=== PATIENT | male | born 1970 | race Caucasian/White ===

== ENCOUNTER 2021-07-08 19:03 | Emergency (ER) | payer OTHER, SELFPAY ==
[2021-07-08] VITALS (9 sets, daily range): BP systolic 113–175; BP diastolic 78–114; PULSE 63–94; RESP 18–23; TEMP 36.7; O2SAT 96–98; BMI 43.0
[2021-07-08 20:32] LABS: Basophils # 0.1 10^3/uL (0.0-0.1); Basophils % 0.6 %; Eosinophils # 0.1 10^3/uL (0.0-0.8); Hematocrit 46.2 % (42.0-52.0); Hemoglobin 15.2 g/dL (11.7-16.6); Lymphocytes # 1.3 10^3/uL (0.8-4.8); Mean Corpuscular HGB Conc 32.9 g/dL (30.0-36.0); Mean Corpuscular Hemoglobin 28.4 pg (28.0-34.0); Mean Corpuscular Volume 86.2 fl (80-94); Mean Platelet Volume 9.1 fL (7.4-10.4); Monocytes # 0.8 10^3/uL (0.2-0.9); Monocytes % 9.4 %; Neutrophils # 5.78 10^3/uL (1.8-7.7); Neutrophils % 72.5 %; Nucleated Red Blood Cells % 0 %; Platelet Count 251 10^3/cmm (130-400); Red Blood Count 5.36 10^6/uL (4.1-5.3); Red Cell Distribution Width 12.8 % (12.1-15.1)
[2021-07-08 20:38] LABS: Influenza A by IFA Negative (Negative); Influenza B by IFA Negative (Negative)
--- NOTE | 2021-07-08 20:40 | XRR_ITS ---
PROCEDURE INFORMATION: Exam: XR Chest Exam date and time: 07/08/2021 8:55 PM Age: 50 years old Clinical indication: Chest wall pain; Additional info: Chest pain TECHNIQUE: Imaging protocol: XR of the chest. Views: 1 view. COMPARISON: No relevant prior studies available. FINDINGS: Lungs: Unremarkable. No consolidation. Pleural spaces: Unremarkable. No pleural effusion. No pneumothorax. Heart/Mediastinum: Unremarkable. No cardiomegaly. Bones/joints: Unremarkable. XR/XR chest 1V portable [id number] IMPRESSION: No acute findings.
--- NOTE | 2021-07-08 20:40 | ECG_ITS ---
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 Measurements Intervals [place] Rate: 64 P: 32 [place]: 158 QRS: 17 QRSD: 90 T: 49 QT: 371 QTc: 385 Interpretive Statements SINUS RHYTHM WITH SINUS ARRHYTHMIA Compared to ECG 07/08/2021 19:40:25 No significant changes Electronically Signed On 07-08-2021 22:23:48 CDT by Kenrick Patel M.D. [email or web address], [id number]
[2021-07-08] MEDS: sodium chloride 0.9% 1,000 ML 999 ML IV (20:49)
[2021-07-08] MEDS: aspirin 325 mg Tablet PO (20:50)
[2021-07-08 21:04] LABS: Alanine Aminotransferase 24 U/L (0-41); Albumin Level 4.1 g/dL (3.5-5.2); Alkaline Phosphatase 167 IU/L (40-130); Anion Gap 14.6 (5-19); Aspartate Amino Transferase 22 U/L (0-40); Blood Urea Nitrogen 11 mg/dL (6-20); Calcium 8.8 mg/dL (8.5-10.5); Carbon Dioxide 26 mmol/L (22-29); Chloride 102 mmol/L (98-107); Globulin 3.2 g/dL (1.3-4.6); Glomerular Filtration Rate 101.5 mL/min (90-130); Glucose 128 mg/dL (65-115); Lipase 22 U/L (13-60); Osmolality Calculated 289 mOsm/kg (285-295); Potassium 3.6 mmol/L (3.5-5.1); Sodium 139 mmol/L (136-145); Total Bilirubin 0.2 mg/dL (0.15-1.2); Total Protein 7.3 g/dL (6.6-8.7)
[2021-07-08 21:16] LABS: Troponin(5th) Baseline 6 ng/L (0-15)
--- NOTE | 2021-07-08 21:46 | W.ED.DIZZY ---
HPI - Dizziness General: Chief Complaint: Dizziness Stated Complaint: dizzy, weakness Time Seen by Provider: 07/08/21 20:08 Course Vital Signs: Vital signs: Vital Signs Temperature 98.0 F 07/08/21 19:29 Pulse Rate 80 07/08/21 20:20 Respiratory Rate 18 07/08/21 20:20 Blood Pressure 151/95 07/08/21 20:20 Pulse Oximetry 98 07/08/21 20:20 MDM - Dizziness Lab Data : 07/08/21 20:24 07/08/21 20:24 Radiology Impressions Chest X-Ray 07/08/21 20:40 IMPRESSION: No acute findings. Laboratory Results WBC 8.0 10^3/uL (4.0-10.0) 07/08/21 20:24 RBC 5.36 10^6/uL (4.1-5.3) H 07/08/21 20:24 Hgb 15.2 g/dL (11.7-16.6) 07/08/21 20:24 Hct 46.2 % (42.0-52.0) 07/08/21 20:24 MCV 86.2 fl (80-94) 07/08/21 20:24 MCH 28.4 pg (28.0-34.0) 07/08/21 20:24 MCHC 32.9 g/dL (30.0-36.0) 07/08/21 20:24 RDW 12.8 % (12.1-15.1) 07/08/21 20:24 Plt Count 251 10^3/cmm (130-400) 07/08/21 20:24 MPV 9.1 fL (7.4-10.4) 07/08/21 20:24 Neut % (Auto) 72.5 % 07/08/21 20:24 Lymph % (Auto) 16.0 % 07/08/21 20:24 [place] % (Auto) 9.4 % 07/08/21 20:24 Eos % (Auto) 1.0 % 07/08/21 20:24 Baso % (Auto) 0.6 % 07/08/21 20:24 Neut # (Auto) 5.78 10^3/uL (1.8-7.7) 07/08/21 20:24 Lymph # (Auto) 1.3 10^3/uL (0.8-4.8) 07/08/21 20:24 [place] # (Auto) 0.8 10^3/uL (0.2-0.9) 07/08/21 20:24 Eos # (Auto) 0.1 10^3/uL (0.0-0.8) 07/08/21 20:24 Baso # (Auto) 0.1 10^3/uL (0.0-0.1) 07/08/21 20:24 Nucleated RBC % (auto) 0 % 07/08/21 20:24 Nucleated RBCs # 0.0 /100WBC 07/08/21 20:24 Sodium 139 mmol/L (136-145) 07/08/21 20:24 Potassium 3.6 mmol/L (3.5-5.1) 07/08/21 20:24 Chloride 102 mmol/L (98-107) 07/08/21 20:24 Carbon Dioxide 26 mmol/L (22-29) 07/08/21 20:24 Anion Gap 14.6 (5-19) 07/08/21 20:24 BUN 11 mg/dL (6-20) 07/08/21 20:24 Creatinine 0.8 mg/dL (0.7-1.2) 07/08/21 20:24 GFR Calculation 101.5 mL/min (90-130) 07/08/21 20:24 Glucose 128 mg/dL (65-115) H 07/08/21 20:24 Calculated Osmolality 289 mOsm/kg (285-295) 07/08/21 20:24 Calcium 8.8 mg/dL (8.5-10.5) 07/08/21 20:24 Total Bilirubin 0.2 mg/dL (0.15-1.2) 07/08/21 20:24 AST 22 U/L (0-40) 07/08/21 20:24 ALT 24 U/L (0-41) 07/08/21 20:24 Alkaline Phosphatase 167 IU/L (40-130) H 07/08/21 20:24 Troponin T Baseline 6 ng/L (0-15) 07/08/21 20:24 Total Protein 7.3 g/dL (6.6-8.7) 07/08/21 20:24 Albumin 4.1 g/dL (3.5-5.2) 07/08/21 20:24 Globulin 3.2 g/dL (1.3-4.6) 07/08/21 20:24 Lipase 22 U/L (13-60) 07/08/21 20:24 Influenza Type A Ag Negative (Negative) 07/08/21 20:05 Influenza Type B Ag Negative (Negative) 07/08/21 20:05 Discharge Plan Discharge Condition: Stable Referrals: Suraj Gonzalez MD [Primary Care Provider] - Coding Level of Care Code ED Relations Coordinator for Danyell Michelle
--- NOTE | 2021-07-08 21:52 | ED_ITS ---
HPI - General Adult General: Chief complaint: Dizziness Stated complaint: dizzy, weakness Time Seen by Provider: 07/08/21 20:08 History of Present Illness: CC: Chest Pain and light-headedness HPI: This is a 50yo patient w/ no PMH presenting to the ED complaining of chest pressure and lightheadedness today. Patient to me that shortly after waking up this morning, she felt lightheaded. Around 3 PM this afternoon patient prescribed chest pressure with radiation to the left arm. Patient said that he also had another episode of lightheadedness associated with this chest pressure. Patient denies any exertional dyspnea or pleuritic chest pain. Pain is not tearing in nature and does not radiate to the back. Pain not associated with vomiting or PO intake. Denies any recent sympathomimetic drug use. Patient denies any cough. Denies palpitations, dysphagia, diaphoresis, radiation of pain to bilateral arms, jaw. Denies F/N/V/D. Patient denies any recent immobility, surgery, unilateral leg swelling, or prior PE. Patient denies any orthopnea. NO family hx of sudden cardiac or CAD. Onset: earlier today Duration: ongoing for the last 1 day Location: home Severity: mild/moderate Associated symptoms: Reports chest pain; Deny dyspnea, nausea, rash, palpitations or vomiting Review of Systems Const: Denies: fever(s) or chills Eyes: Denies: change in vision ENMT: Denies: mouth pain Card: Reports: chest pain; Denies: palpitations Resp: Denies: dyspnea or non-productive cough GI: Denies: abdominal pain, nausea, vomiting or diarrhea : Denies: dysuria Musc: Denies: extremity pain Skin/Breast: Denies: rash or new lesions Neuro: Reports: other (+light-headedness); Denies: weakness in extremities Psych: Reports: other (Normal mood) Willy/Lymph: Denies: easy bruising PFSH ED PFSH: Medical History No pertinent past medical history Social History Smoking and tobacco status: never smoked Alcohol intake: never Physical Exam Const: COMMON NORMALS: alert HENMT: COMMON NORMALS: atraumatic HEAD & SCALP: atraumatic MOUTH: moist mucous membranes not abnormal Eye: COMMON NORMALS: EOMs intact bilaterally and conjunctivae normal CONJUNCTIVA: Yes conjunctivae normal Neck/C-Spine: COMMON NORMALS: full ROM and supple Resp: COMMON NORMALS: normal respiratory effort and clear to auscultation bilaterally AUSCULTATION: clear to auscultation bilaterally Cardio: COMMON NORMALS: regular rate RATE: regular rate OTHER: 2+ radial pulses b/l GI: COMMON NORMALS: Soft to palpation and non-tender PALPATION: Yes Soft to palpation Extremity: COMMON NORMALS: full ROM Neuro: SENSORIUM/ORIENTATION: Yes alert MOTOR EXAM: No Abnormal motor strength present and Other motor observations present (no focal motor deficits) OTHER: no LE swelling Psych: COMMON NORMALS: speech normal SPEECH: Yes normal speech MOOD & AFFECT: Yes euthymic mood Course Vital Signs: Vital signs: Vital Signs Temperature 98.0 F 07/08/21 19:29 Pulse Rate 71 07/09/21 00:00 Respiratory Rate 16 07/09/21 00:00 Blood Pressure 120/93 07/09/21 00:00 Pulse Oximetry 96 07/09/21 00:00 MDM - General Adult Medical Decision Making [50]yo patient w/ no PMH presenting to the ED with evaluation of new onset of chest pain. HDS, pulse 2+ radially bilaterally, no signs of fluid overload, AAOx3, neuro exam intact. Patient had 3 out of 10 chest pressure. However reassessment after aspirin, patient reports chest pressure improved. Workup: ECG x 2, CXR, CBC, BMP, Troponin x 2 Interventions: ASA Findings: ECG: No overt evidence of STEMI, hyperacute T waves, localizable STD or T wave inversions. No evidence of Brugada?s sign, delta wave, epsilon wave, significantly prolonged QTc, or malignant arrhythmia. No Q waves. Other Labs unremarkable for emergent problems. Troponin x 2 wnl CXR: Without PTX, PNA, or widened mediastinum Last Stress Test: never Last Heart Catheterization: never HEART Score: 3 (age and story) PERC: Negative [11:00pm] On reassessment, the patient is HDS, no complaints of persistent chest pain in the ED after evaluation. ECG is non-ischemic. Workup today is unremarkable. Doubt ACS/PE or other emergent causes of chest pain. Doubt ACS/PE or other emergent causes of chest pain. No suspicion for aortic dissection given no widened mediastinum, 2+ upper extremity pulses, or tearing pain. No suspicion for PE given no pleuritic chest pain, recent immobilization or surgery hemoptysis, or other VTE risk factors. EKG is non-ischemic. XR normal. I performed shared decision-making with patient regarding admission versus discharge today for HEART score of 3 , and patient prefers to be discharged. I offered admission for chest pain workup. Upon hearing this, patient elects to go home with close follow up with Cardiology. I explained the risks of leaving the hospital today including lethal arrythemia, RI, and even . Patient verbalizes understanding of these discussed risk and elect for the alternative of following up outpatient since he has to bring his for outpatient hip surgery tomorrow and cannot do that if he were to stay in the hospital until tomorrow. Patient verbalizes understanding to return for any worsening symptoms including chest pain, dyspnea, fatigue, arm pain/jaw pain/back pain or any new or concerning issues. I have given patient follow up with our manager of case management to be seen by our outpatient Cardiology for further chest pain workup. Patient aware of a call from our manager of case management to schedule for appointment(s) and verbalizes understanding of the importance of following up. Disposition: Discharge. Patient counseled regarding diagnostic impression, treatment plan. Patient given ED strict return precautions to return for continuation, worsening, or development of new symptoms. Instructed to f/u w/ PCP regarding symptoms today. Patient verbalized understanding. Lab Data : 07/08/21 20:24 07/08/21 20:24 Radiology Impressions Chest X-Ray 07/08/21 20:40 IMPRESSION: No acute findings. Laboratory Results WBC 8.0 10^3/uL (4.0-10.0) 07/08/21 20:24 RBC 5.36 10^6/uL (4.1-5.3) H 07/08/21 20:24 Hgb 15.2 g/dL (11.7-16.6) 07/08/21 20:24 Hct 46.2 % (42.0-52.0) 07/08/21 20:24 MCV 86.2 fl (80-94) 07/08/21 20:24 MCH 28.4 pg (28.0-34.0) 07/08/21 20:24 MCHC 32.9 g/dL (30.0-36.0) 07/08/21 20: RDW 12.8 % (12.1-15.1) 07/08/21 20: Plt Count 251 10^3/cmm (130-400) 07/08/21 20:24 MPV 9.1 fL (7.4-10.4) 07/08/21 20:24 Neut % (Auto) 72.5 % 07/08/21 20: Lymph % (Auto) 16.0 % 07/08/21 20:24 [place] % (Auto) 9.4 % 07/08/21 20:24 Eos % (Auto) 1.0 % 07/08/21 20: Baso % (Auto) 0.6 % 07/08/21: Neut # (Auto) 5.78 10^3/uL (1.8-7.7) 07/08/21 20: Lymph # (Auto) 1.3 10^3/uL (0.8-4.8) 07/08/21: [place] # (Auto) 0.8 10^3/uL (0.2-0.9) 07/08/21 20:24 Eos # (Auto) 0.1 10^3/uL (0.0-0.8) 07/08/21 20: Baso # (Auto) 0.1 10^3/uL (0.0-0.1) 07/08/21 20:24 Nucleated RBC % (auto) 0 % 07/08/21: Nucleated RBCs # 0.0 /100WBC 07/08/21 20:24 Sodium 139 mmol/L (136-145) 07/08/21 20:24 Potassium 3.6 mmol/L (3.5-5.1) 07/08/21 20:24 Chloride 102 mmol/L (98-107) 07/08/21 20:24 Carbon Dioxide 26 mmol/L (22-29) 07/08/21 20:24 Anion Gap 14.6 (5-19) 07/08/21 20:24 BUN 11 mg/dL (6-20) 07/08/21 20:24 Creatinine 0.8 mg/dL (0.7-1.2) 07/08/21 20:24 GFR Calculation 101.5 mL/min (90-130) 07/08/21 20:24 Glucose 128 mg/dL (65-115) H 07/08/21 20:24 Calculated Osmolality 289 mOsm/kg (285-295) 07/08/21 20:24 Calcium 8.8 mg/dL (8.5-10.5) 07/08/21 20:24 Total Bilirubin 0.2 mg/dL (0.15-1.2) 07/08/21 20:24 AST 22 U/L (0-40) 07/08/21 20:24 ALT 24 U/L (0-41) 07/08/21 20:24 Alkaline Phosphatase 167 IU/L (40-130) H 07/08/21 20:24 Troponin T Baseline 6 ng/L (0-15) 07/08/21 20:24 Troponin T 120 Minute 6.00 ng/L (0-15) 07/08/21 22:35 Delta Troponin T 0 ABS# (0-10) 07/08/21 22:35 Total Protein 7.3 g/dL (6.6-8.7) 07/08/21 20:24 Albumin 4.1 g/dL (3.5-5.2) 07/08/21 20:24 Globulin 3.2 g/dL (1.3-4.6) 07/08/21 20:24 Lipase 22 U/L (13-60) 07/08/21 20:24 Influenza Type A Ag Negative (Negative) 07/08/21 20:05 Influenza Type B Ag Negative (Negative) 07/08/21 20:05 Discharge Plan Discharge Patient Disposition: Home Clinical Impression: Chest pain, Light headedness Condition: Stable Discharge Orders: Discharge ED (Routine); Ordered 07/09/21 Ordered By: Abdi Hines Referrals: Suraj Gonzalez MD [Primary Care Provider] - Discharge Diet: Advance as tolerated Discharge Activity: Increase activity as tolerated Patient Instructions: Chest Pain (ED) Activity Restrictions/Additional Instructions: Come back to the emergency room if your chest pain worsens, have any fever or chills, worsening shortness of breath, worsening exertional lightheadedness, or any new or concerning complaints. Our manager of case management will have you follow-up with Cardiology in the next few days. You would be expected to have a phone call with our manager of case management who will put you on the schedule. You can expect a call from us in the next 2-3 days. If you don't hear from us, call us back in the emergency room at [phone]. Stand Alone Forms: Work/School Release Coding Level of Care Code ED Barber Apprentice for Danyell Fwd Exam Comprehensive
--- NOTE | 2021-07-08 22:40 | ECG_ITS ---
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 Measurements Intervals [place] Rate: 77 P: 36 [place]: 160 QRS: 16 QRSD: 89 T: 52 QT: 354 QTc: 403 Interpretive Statements SINUS RHYTHM No previous ECG available for comparison Electronically Signed On 07-08-2021 22:26:49 CDT by Kenrick Patel M.D. [id number]
[2021-07-08 23:32] LABS: Troponin 5 2HR Delta 0 ABS# (0-10)
[2021-07-09] VITALS: BP 120/93; PULSE 71; RESP 16; O2SAT 96
--- NOTE | 2021-07-09 10:09 | DCPLANNER ---
Addendum entered by Jaqueline Noguera 10/05/21 15:49: Patient had a follow up appointment scheduled with heart care - patient did not attend appointment. Addendum entered by Jaqueline Noguera 07/23/21 06:19: Patient has a follow up appointment scheduled for Monday, September 08, 2021 at 1:[address] Beaulieu at [facility]. Clinic will call patient with appointment information. Original Note: manager renewable energy had message to schedule a follow up appointment for patient with cardiology. manager renewable energy sent patients information to the front office staff at [facility]. Patients information will be printed and reviewed. Clinic will call patient with appointment information.
--- NOTE | 2021-07-15 17:42 | DCPLANNER ---
Addendum entered by Jaqueline Noguera 02/17/22 13:03: Patient did not want the test ordered Original Note: manager access had message to schedule an outpatient stress test for patient. manager access faxed signed order to centralized scheduling, who will call patient with appointment information.
== END 2021-07-09 00:05 | disposition home or self-care (01) ==
PROVIDERS: Emergency Provider Emergency Medicine; PCP Family Medicine
DX: R42 Dizziness and giddiness (principal); R07.9 Chest pain, unspecified
CPT/HCPCS: 71045; 80053; 83690; 84484; 85025; 87804; 93005; 96360; 96361; 99285; J7030

== ENCOUNTER → 2023-11-16 14:35 | Outpatient (BNVA) | payer OTHER, SELFPAY | PROVIDERS: PCP Family Medicine; Visit Provider Family Medicine | DX: Z51.81 Encounter for therapeutic drug level monitoring (principal); Z13.220 Encounter for screening for lipoid disorders; Z13.1 Encounter for screening for diabetes mellitus; R53.81 Other malaise; R53.83 Other fatigue; I10 Essential (primary) hypertension; R07.9 Chest pain, unspecified | CPT/HCPCS: 85025 ==

== ENCOUNTER → 2023-11-20 11:58 | Outpatient (BNVA) | payer OTHER, SELFPAY | PROVIDERS: PCP Family Medicine; Visit Provider Family Medicine | DX: Z51.81 Encounter for therapeutic drug level monitoring (principal); Z13.1 Encounter for screening for diabetes mellitus; Z13.220 Encounter for screening for lipoid disorders; R53.81 Other malaise; R53.83 Other fatigue; I10 Essential (primary) hypertension; R07.9 Chest pain, unspecified | CPT/HCPCS: 80053; 80061; 83036; 84439; 84443; 85025 ==

== ENCOUNTER 2023-11-28 11:22 | Outpatient (CLI) | payer OTHER, SELFPAY ==
--- NOTE | 2023-11-28 11:31 | XRR_ITS ---
PROCEDURE INFORMATION: Exam: XR Left Knee Exam date and time: 11/28/2023 11:45 AM Age: 53 years old Clinical indication: Pain; Knee; Left; Patient HX: Crunchy feeling, fall from ladder x months ago, shifting weight causes instability; Additional info: Left knee pain TECHNIQUE: Imaging protocol: Radiologic exam of the left knee. Views: 3 views. COMPARISON: No relevant prior studies available. FINDINGS: Bones/joints: Normal. No fracture or dislocation. No acute osseous or joint abnormality. Soft tissues: Normal. XR/XR knee LT 3V* [id number] IMPRESSION: No acute findings.
== END 2023-11-28 11:23 | disposition home or self-care (01) ==
PROVIDERS: PCP Family Medicine; Visit Provider Family Medicine
DX: M25.562 Pain in left knee (principal); W11.XXXA Fall on and from ladder, initial encounter
CPT/HCPCS: 73562

== ENCOUNTER 2023-12-01 23:23 | Emergency (ER) | payer OTHER, SELFPAY ==
--- NOTE | 2023-12-01 23:30 | ECG_ITS ---
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
[2023-12-01 23:34] VITALS: BP 170/104; PULSE 84; RESP 18; TEMP 36.4; O2SAT 100
[2023-12-02] VITALS (33 sets, daily range): BP systolic 130–164; BP diastolic 88–100; PULSE 55–118; RESP 14–25; O2SAT 94–100
[2023-12-02 01:26] LABS: Basophils # 0.1 10^3/uL (0.0-0.1); Basophils % 0.8 %; Eosinophils # 0.1 10^3/uL (0.0-0.8); Hematocrit 46.8 % (37-53); Lymphocytes # 1.3 10^3/uL (0.8-4.8); Lymphocytes % 21.7 %; Mean Corpuscular HGB Conc 32.5 g/dL (30-55); Mean Corpuscular Hemoglobin 28.2 pg (27-33); Mean Corpuscular Volume 86.8 fl (82-101); Mean Platelet Volume 8.9 fL (7.4-10.4); Monocytes # 0.7 10^3/uL (0.2-0.9); Neutrophils # 3.87 10^3/uL (1.8-7.7); Neutrophils % 63.8 %; Nucleated Red Blood Cells % 0 %; Platelet Count 248 10^3/cmm (157-399); Red Blood Count 5.39 10^6/uL (3.85-5.65); Red Cell Distribution Width 13.2 % (12.1-15.1); White Blood Count 6.07 10^3/uL (3.29-11.43)
[2023-12-02 01:40] LABS: Troponin(5th) Baseline < 6 ng/L (0-15)
[2023-12-02 01:49] LABS: Blood Urea Nitrogen 13 mg/dL (6-20); Calcium 8.6 mg/dL (8.5-10.5); Carbon Dioxide 27 mmol/L (22-29); Chloride 101 mmol/L (98-107); Creatinine Clr Calc Pharmacy 134.1389; Glomerular Filtration Rate 87.6 mL/min (90-130); Glucose 127 mg/dL (65-115); Osmolality Calculated 286 mOsm/kg (285-295); Sodium 137 mmol/L (136-145)
--- NOTE | 2023-12-02 02:00 | XRR_ITS ---
PROCEDURE INFORMATION: Exam: XR Chest Exam date and time: 12/02/2023 2:02 AM Age: 53 years old Clinical indication: Chest pressure; Patient HX: C/O chest pain TECHNIQUE: Imaging protocol: Radiologic exam of the chest. Views: 1 view. COMPARISON: CR XR chest 1V portable [id number] 07/08/2021 8:55 PM FINDINGS: Lungs: Unremarkable. No consolidation. Pleural spaces: Unremarkable. No pleural effusion. No pneumothorax. Heart/Mediastinum: Unremarkable. No cardiomegaly. Bones/joints: Unremarkable. XR/XR chest 1V portable [id number] IMPRESSION: No acute findings.
[2023-12-02 02:39] LABS: NT Pro B Type Natriuretic Pept 66 pg/mL (0-125)
[2023-12-02 03:15] LABS: Troponin 5 2HR 6.14 ng/L (0-15); Troponin 5 2HR Delta 0.14001 ABS# (0-10)
[2023-12-02] MEDS: nitroglycerin 0.4 mg sublingual Tablet SUBLINGUAL (03:18)
--- NOTE | 2023-12-02 18:37 | ED_ITS ---
HPI - Chest Pain 2 General: Chief Complaint: Chest Pain Stated Complaint: Chest Pains Time Seen by Provider: 12/02/23 01:26 History of Present Illness: This patient is a 53-year-old white male who presents to the emergency department with chest pain. Patient states the chest pain feels like a pressure sensation currently rates it a 4 and a scale of 1-10. He is also having some left arm pain. Symptoms came on at 10 PM this evening. He does have some mild associated shortness of breath. Patient states he was recently diagnosed with hypertension and placed on losartan 50 mg/day. He has no other chronic medical problems. He does not smoke. Related Data Home Medications Medication Instructions Recorded Confirmed aspirin 325 mg tablet 325 mg PO DAILY 11/16/23 11/16/23 Previous Rx's Medication Instructions Recorded losartan 50 mg tablet 50 mg PO DAILY #30 tabs 11/23/23 nitroglycerin 0.4 mg sublingual 0.4 mg sublingual Q5M PRN chest 12/02/23 tablet pain #30 tabs Allergies Allergy/AdvReac Type Severity Reaction Status Date / Time No Known Allergies Allergy Verified 12/01/23 23:39 Review of Systems 2 General: Reports: 10 or more systems reviewed and unremarkable except in HPI and below Card: Reports: chest pain PFSH ED 2 PFSH: Medical History (Updated 12/02/23 @ 03:44 by Kimo Joya MD) Hypertension Chest pain Surgical History (Updated 11/16/23 @ 13:54 by Suraj Gonzalez MD) History of elbow surgery Right elbow fracture History of foot surgery Right foot - Dr Orozco Family History Father , of kidney failure Kidney failure Bladder cancer Mother Lung cancer Breast cancer Social History (Updated 11/16/23 @ 13:57 by Suraj Gonzalez MD) Smoking and tobacco/nicotine status: current every day tobacco/nicotine user smokeless tobacco Smokeless tobacco user: chewing tobacco Smokeless tobacco details: 2-3 cans/day Alcohol intake: current Alcohol intake frequency: few times a month Substance/Drug Use: never Current occupation: [employer] Physical Exam 2 Const: COMMON NORMALS: no acute distress, patient oriented x3 and no limitations GENERAL APPEARANCE: cooperative and comfortable HENMT: COMMON NORMALS: normocephalic, atraumatic, Normal nasal mucous membranes and turbinates present, moist oral mucous membranes and oropharynx normal HEAD & SCALP: normal to inspection, normocephalic and atraumatic F SERGIO & SINUS: normal facial exam NOSE: Normal nasal mucous membranes and turbinates present Eye: COMMON NORMALS: Equal, round and reactive pupils present, EOMs intact bilaterally and conjunctivae normal GENERAL EYE: appearance normal, both eyes and all related structures CONJUNCTIVA: Yes conjunctivae normal PUPIL: Yes Equal, round and reactive pupils present Neck/C-Spine: COMMON NORMALS: supple and no JVD Chest: COMMONS NORMALS: normal inspection of the chest Resp: COMMON NORMALS: normal respiratory effort and clear to auscultation bilaterally AUSCULTATION: clear to auscultation bilaterally Cardio: COMMON NORMALS: no JVD, regular rate, regular rhythm, No gallops present (Cardio), No murmurs present (Cardio) and No rub (Cardio) RATE: r egular rate RHYTHM: regular rhythm GI: COMMON NORMALS: Normal to inspection, nondistended, normoactive bowel sounds present, Soft to palpation and non-tender AUSCULTATION: Yes normoactive bowel sounds PALPATION: Yes Soft to palpation : COMMON NORMALS: Yes no CVA tenderness BLADDER/KIDNEY EXAM: Yes no CVA tenderness Back/Pelvis: COMMON NORMALS: no CVA tenderness and thoracic and lumbar spine normal to inspection Extremity: COMMON NORMALS: normal to inspection Neuro: COMMON NORMALS: patient oriented x3 and CN's II-XII intact bilaterally Psych: COMMON NORMALS: mental status grossly normal, Normal thought process present and cooperative THOUGHT PROCESS: Normal thought process present Skin: COMMON NORMALS: no rashes or lesions noted, turgor normal and no jaundice GENERAL SKIN EXAM: no rashes or lesions noted and turgor normal Course 2 Vital Signs: Vital signs: Vital Signs Temperature 97.6 F 12/01/23 23:34 Pulse Rate 70 12/02/23 03:59 Respiratory Rate 18 12/02/23 03:59 Blood Pressure 130/88 12/02/23 03:59 Pulse Oximetry 97 12/02/23 03:59 Oxygen Delivery Me thod Room Air 12/02/23 01:16 MDM - Chest Pain Medical Decision Making EKG revealed normal sinus rhythm with no ST segment abnormalities. Chest x-ray was normal. CBC and BMP were normal. Baseline troponin was less than 6 with a 2-hour level of 6. Patient was given a sublingual nitroglycerin tablet which she thinks helped somewhat. Patient was discharged in stable condition. I did prescribe nitroglycerin to be used as needed. Recommended he follow-up with his primary care physician as soon as possible and have them schedule a cardiac stress test. Also recommended he take 1 baby aspirin per day. Lab Data 12/02/23 01:13 12/02/23 01:13 Radiology Impressions Chest X-Ray 12/02/23 02:00 IMPRESSION: No acute findings. Laboratory Results WBC 6.07 10^3/uL (3.29-11.43) 12/02/23 01:13 RBC 5.39 10^6/uL (3.85-5.65) 12/02/23 01:13 Hgb 15.20 g/dL (11.27-16.99) 12/02/23 01:13 Hct 46.8 % (37-53) 12/02/23 01:13 MCV 86.8 fl (82-101) 12/02/23 01:13 MCH 28.2 pg (27-33) 12/02/23 01:13 MCHC 32.5 g/dL (30-55) 12/02/23 01:13 RDW 13.2 % (12.1-15.1) 12/02/23 01:13 Plt Count 248 10^3/cmm (157-399) 12/02/23 01:13 MPV 8.9 fL (7.4-10.4) 12/02/23 01:13 Neut % (Auto) 63.8 % 12/02/23 01:13 Lymph % (Auto) 21.7 % 12/02/23 01:13 [place] % (Auto) 11.0 % 12/02/23 01:13 Eos % (Auto) 2.0 % 12/02/23 01:13 Baso % (Auto) 0.8 % 12/02/23 01:13 Neut # (Auto) 3.87 10^3/uL (1.8-7.7) 12/02/23 01:13 Lymph # (Auto) 1.3 10^3/uL (0.8-4.8) 12/02/23 01:13 [place] # (Auto) 0.7 10^3/uL (0.2-0.9) 12/02/23 01:13 Eos # (Auto) 0.1 10^3/uL (0.0-0.8) 12/02/23 01:13 Baso # (Auto) 0.1 10^3/uL (0.0-0.1) 12/02/23 01:13 Nucleated RBC % (auto) 0 % 12/02/23 01:13 Nucleated RBCs # 0.0 /100WBC 12/02/23 01:13 Sodium 137 mmol/L (136-145) 12/02/23 01:13 Potassium 4.0 mmol/L (3.5-5.1) 12/02/23 01:13 Chloride 101 mmol/L (98-107) 12/02/23 01:13 Carbon Dioxide 27 mmol/L (22-29) 12/02/23 01:13 Anion Gap 13.0 (5-19) 12/02/23 01:13 BUN 13 mg/dL (6-20) 12/02/23 01:13 Creatinine 0.9 mg/dL (0.7-1.2) 12/02/23 01:13 GFR Calculation 87.6 mL/min (90-130) L 12/02/23 01:13 Glucose 127 mg/dL (65-115) H 12/02/23 01:13 Calculated Osmolality 286 mOsm/kg (285-295) 12/02/23 01:13 Calcium 8.6 mg/dL (8.5-10.5) 12/02/23 01:13 Troponin T Baseline < 6 ng/L (0-15) 12/02/23 01:13 Troponin T 120 Minute 6.14 ng/L (0-15) 12/02/23 02:49 Delta Troponin T [id number] ABS# (0-10) 12/02/23 02:49 NT-Pro-B Natriuret Pep 66 pg/mL (0-125) 12/02/23 01:13 All radiology interpretation(s) finalized by discharge Discharge Plan Discharge Patient Disposition: Home Clinical Impression: Chest pain Qualifiers: Chest pain type: unspecified Qualified Code(s): R07.9 - Chest pain, unspecified Condition: Stable Prescriptions: New nitroglycerin 0.4 mg tablet, sublingual 0.4 mg sublingual Q5M PRN (Reason: chest pain) Qty: 30 0RF Rx Instructions: do not exceed 3 doses per episode No Action aspirin 325 mg tablet 325 mg PO DAILY losartan 50 mg tablet 50 mg PO DAILY Qty: 30 3RF Discharge Orders: Discharge ED (Routine); Ordered 12/02/23 Ordered By: Kimo Joya Referrals: Suraj Gonzalez MD [Primary Care Provider] - Patient Instructions: Chest Pain (ED) Coding Level of Care Code ED Frame Table Operator Helper for Danyell Michelle
== END 2023-12-02 03:56 | disposition home or self-care (01) ==
PROVIDERS: Emergency Provider Emergency Medicine; PCP Family Medicine
DX: R07.9 Chest pain, unspecified (principal); Z79.82 Long term (current) use of aspirin; I10 Essential (primary) hypertension; F17.220 Nicotine dependence, chewing tobacco, uncomplicated
CPT/HCPCS: 36415; 71045; 80048; 83880; 84484; 85025; 93005; 99285

== ENCOUNTER → 2024-02-26 11:20 | Outpatient (BNVA) | payer OTHER, SELFPAY | PROVIDERS: PCP Family Medicine; Visit Provider Family Medicine | DX: R50.9 Fever, unspecified (principal); E03.9 Hypothyroidism, unspecified; R73.03 Prediabetes | CPT/HCPCS: 87400 ==

== ENCOUNTER → 2024-05-20 08:48 | Outpatient (BNVA) | payer OTHER, SELFPAY | PROVIDERS: PCP Family Medicine; Visit Provider Family Medicine | DX: R53.83 Other fatigue (principal); R73.03 Prediabetes | CPT/HCPCS: 83036; 84439; 84443 ==